=== PATIENT | male | born 1965 | race Caucasian/White ===

== ENCOUNTER 2022-06-25 00:55 | Day surgery (SDC) | payer BC, SELFPAY ==
[2022-06-14 12:37] VITALS: BMI 37.5
--- NOTE | 2022-06-22 14:32 | PM.HPGS ---
History of Present Illness History of Present Illness Consent: Risks, benefits, and alternatives have been discussed and questions answered. Patient agrees to proceed with procedure. Chief complaint: neoplasm screening Narrative: Dwight Paul is a 56 year old male Referred for colon cancer screening. He has a history of having a polyp removed in the past. Review of Systems Review of Systems: All systems reviewed & are unremarkable except as noted in HPI and below PMFSH Past Medical History Medical History Anxiety HTN (hypertension) Obesity TIA (transient ischemic attack) Social History Social History Smoking status: Never smoker Alcohol intake: current Alcohol use details: socially Substance use: never Substance use type: does not use Spiritual care concerns: No Meds Home Medications and Allergies Home Medications Medication Instructions Recorded Confirmed Type Daily Multivitamin 1 tab-cap PO DAILY 06/14/22 06/14/22 History Glucosamine 1 tab-cap PO DAILY 06/14/22 06/14/22 History bupropion HCl 150 mg 24 hr tablet, 150 mg PO DAILY 06/14/22 06/14/22 History extended release citalopram 20 mg tablet 20 mg PO DAILY 06/14/22 06/14/22 History lisinopril 10 mg tablet 10 mg PO DAILY 06/14/22 06/14/22 History omeprazole 20 mg PO DAILY 06/14/22 06/14/22 History Allergies Allergy/AdvReac Type Severity Reaction Status Date / Time No Known Allergies Allergy Verified 06/25/22 08:36 Exam Resp: Auscultation: clear to auscultation bilaterally Cardio: Rate: regular rate Rhythm: regular rhythm GI: GI Palp: Yes Soft to palpation and No Tenderness to palpation present (GI) Assessment and Plan Assessment and plan (1) Colon cancer screening: Code(s): Z12.11 - Encounter for screening for malignant neoplasm of colon Status: Acute Assessment and Plan: Colonoscopy with possible biopsy or polypectomy or cautery or injection of substances.
[2022-06-25 08:37] VITALS: BP 141/90; PULSE 93; RESP 18; TEMP 36.1; O2SAT 97; BMI 37.5
[2022-06-25] MEDS: LACTATED RINGERS 1,000 ML 150 ML IV CONT (08:45)
--- NOTE | 2022-06-25 08:46 | P.PNAN_ITS ---
Anes - Initial Pre Proc Eval Procedure: Operation Date: 06/25/22 09:30 Proposed Procedures p Screening Colonoscopy - August Garza MD Date/Time: 06/25/22 08:46 Surgeon: August Garza MD Pre Op Diagnosis: neoplasm screening Patient Data Age: 56 Gender: M Height: 1.91 m Weight: 136.5 kg Last Vital Signs Temp 36.1 C L 06/25/22 08:37 Pulse 93 06/25/22 08:37 Resp 18 06/25/22 08:37 BP 141/90 H 06/25/22 08:37 Pulse Ox 97 06/25/22 08:37 O2 Del Method Room Air 06/25/22 08:37 Allergies Allergy/AdvReac Type Severity Reaction Status Date / Time No Known Allergies Allergy Verified 06/25/22 08:36 Home Medications Medication Instructions Recorded Confirmed Type Daily Multivitamin 1 tab-cap PO DAILY 06/14/22 06/14/22 History Glucosamine 1 tab-cap PO DAILY 06/14/22 06/14/22 History bupropion HCl 150 mg 24 hr tablet, 150 mg PO DAILY 06/14/22 06/14/22 History extended release citalopram 20 mg tablet 20 mg PO DAILY 06/14/22 06/14/22 History lisinopril 10 mg tablet 10 mg PO DAILY 06/14/22 06/14/22 History omeprazole 20 mg PO DAILY 06/14/22 06/14/22 History Patient hx anesthesia problems: none Family hx anesthesia problems: none Results Review: All pre-operative results and documents have been reviewed as part of the pre- operative evaluation. [facility] Past Medical History Medical History (Updated 06/25/22 @ 08:46 by Hans Ha MD) Anxiety HTN (hypertension) Obesity TIA (transient ischemic attack) Social History Social History Smoking status: Never smoker Alcohol intake: current Alcohol use details: socially Substance use: never Substance use type: does not use Spiritual care concerns: No Anes - Eval Final PreProcedure Day of Procedure 06/25/22 08:46 Patient weight: obese Heart: regular rate and rhythm Lungs: clear to auscultation Airway: Mallampati scale class II Neurological: alert and oriented Last oral intake: >/= 8 hours ASA classification: III Emergent: no Anesthetic plan: proceed Anesthesia type and monitoring: general GIVS and standard monitoring Results Review: All pre-operative results and documents have been reviewed as part of the pre- operative evaluation. Informed Consent: The patient's anesthetic plan and its attendant risks and benefits were discussed with the patient/family/POA. Questions were solicited and answers provided to the satisfaction of the patient/family/POA.
[2022-06-25 09:49] VITALS: BP 112/61; PULSE 87; RESP 22; O2SAT 93
[2022-06-25 09:59] VITALS: BP 115/78; PULSE 82; RESP 15; O2SAT 94
[2022-06-25 10:09] VITALS: BP 122/86; PULSE 77; RESP 17; O2SAT 95
== END 2022-06-25 10:24 | disposition home or self-care (01) ==
PROVIDERS: PCP Family Medicine; Visit Provider Internal Medicine Gastroenterology
PROC: 0DJD8ZZ Inspection of Lower Intestinal Tract, Via Natural or Artificial Opening Endoscopic (ICD-10-PCS; CPT 45378; principal; 2022-06-25 09:30)
DX: Z12.11 Encounter for screening for malignant neoplasm of colon (principal); K64.8 Other hemorrhoids; K57.30 Diverticulosis of large intestine without perforation or abscess without bleeding; Z86.010 Personal history of colon polyps; I10 Essential (primary) hypertension; F41.9 Anxiety disorder, unspecified; Z86.73 Personal history of transient ischemic attack (TIA), and cerebral infarction without residual deficits; E66.9 Obesity, unspecified; Z68.37 Body mass index [BMI] 37.0-37.9, adult
CPT/HCPCS: 45378; J2704; J7120